=== PATIENT | male | born 1980 ===

== ENCOUNTER 2018-02-09 12:45 | Emergency (ER) | payer OTHER ==
--- NOTE | 2018-02-09 13:02 | ED PDOC ---
Arrival/HPI - General Time Seen by Provider: 02/09/18 12:59 Historian: Patient - History of Present Illness Narrative History of Present Illness (Text): 02/09/18 12:59 37yo male with no pmhx who present with complaint of left sided rib pain. states pain started this morning after vomiting. Notes that he drank alcohol last night and vomited multiple times this morning and then started having ribs pain s/p. States pain is worse with deep inspiration, causing him to have SOB. He did not take any medication for the pain. Denies cough, chest pain, dizziness , trauma, fever, chills, any other complaint. Past Medical History - Provider Review Nursing Documentation Reviewed: Yes Family/Social History - Physician Review Nursing Documentation Reviewed: Yes Family/Social History: Unknown Family HX Allergies/Home Meds Allergies/Adverse Reactions: Allergies No Known Allergies Allergy (Verified 02/09/18 13:05) Review of Systems - Physician Review All systems were reviewed & negative as marked: Yes - Review of Systems Constitutional: Normal Eyes: Normal ENT: Normal Respiratory: Normal Cardiovascular: Normal Gastrointestinal: Normal Genitourinary Male: Normal Musculoskeletal: Arthralgias (Rib pain) Skin: Normal Neurological: Normal Endocrine: Normal Hemo/Lymphatic: Normal Psychiatric: Normal Physical Exam Vital Signs Reviewed: Yes Vital Signs Temp Pulse Resp BP Pulse Ox 02/09/18 15:04 97.8 F 84 16 118/81 98 02/09/18 15:02 97.8 F 84 16 118/81 98 02/09/18 13:03 97.8 F 98 H 18 147/79 99 Temperature: Afebrile Blood Pressure: Normal Pulse: Regular Respiratory Rate: Normal Appearance: Positive for: Well-Appearing, Non-Toxic, Comfortable Pain Distress: None Mental Status: Positive for: Alert and Oriented X 3 - Systems Exam Head: Present: Atraumatic, Normocephalic Pupils: Present: PERRL Extroacular Muscles: Present: EOMI Conjunctiva: Present: Normal Mouth: Present: Moist Mucous Membranes Neck: Present: Normal Range of Motion Respiratory/Chest: Present: Clear to Auscultation, Good Air Exchange. No: Respiratory Distress, Accessory Muscle Use, Wheezes, Decreased Breath Sounds, Rales, Retracting, Rhonchi, Tender to Palpation Cardiovascular: Present: Regular Rate and Rhythm, Normal S1, S2. No: Murmurs Abdomen: No: Tenderness, Distention, Peritoneal Signs Back: Present: Normal Inspection Upper Extremity: Present: Normal Inspection. No: Cyanosis, Edema Lower Extremity: Present: Normal Inspection. No: Edema Neurological: Present: GCS=15, CN II-XII Intact, Speech Normal Skin: Present: Warm, Dry, Normal Color. No: Rashes Psychiatric: Present: Alert, Oriented x 3, Normal Insight, Normal Concentration Medical Decision Making ED Course and Treatment: 02/09/18 20:29 PT present with sharp left sided rib pain s/p vomiting. He was physically in ED Toradol and flexeril was given for pain control and on re evaluation she report resolution of his pain Rib/Chest xray IMPRESSION: Unremarkable radiographs of the chest and left ribs. No left rib fracture. EKG NSR @ 72bpm. All result was DW the pt and he was DC home with percocet, ibuprofen and flexeril. Referred to the clinic. Advised TRT ED for any new or worsening symptoms. - RAD Interpretation Radiology Orders: 02/09/18 13:06 RIBS LEFT & PA CHEST [RAD] Stat - Medication Orders Current Medication Orders: Discontinued Medications Diazepam (Valium) 5 mg PO ONCE ONE PRN Reason: Protocol Stop: 02/09/18 13:08 Last Admin: 02/09/18 13:11 Dose: 5 mg Ketorolac Tromethamine (Toradol) 60 mg IM STAT STA Stop: 02/09/18 13:08 Last Admin: 02/09/18 13:11 Dose: 60 mg MAR Pain Assessment Document 02/09/18 13:11 [facility] (Rec: 02/09/18 13:11 [facility] [id number]) Pain Reassessment Is this a pain reassessment? No Sleep Is patient sleeping during reassessment? No Presence of Pain Presence of Pain Yes Pain Scale Used Pain Scale Used Numeric Location Pain Location Body Site Chest Description Description Throbbing Intensity of Pain at present 10 IM Administration Charges Document 02/09/18 13:11 [facility] (Rec: 02/09/18 13:11 [facility] [id number]) Charges for Administration # of IM Administrations 1 Disposition/Present on Arrival - Present on Arrival Any Indicators Present on Arrival: No History of DVT/PE: No History of Uncontrolled Diabetes: No Urinary Catheter: No History of Decub. Ulcer: No History Surgical Site Infection Following: None - Disposition Have Diagnosis and Disposition been Completed?: Yes Diagnosis: Rib pain Disposition: HOME/ ROUTINE Disposition Time: 14:45 Patient Plan: Discharge Condition: STABLE Discharge Instructions (ExitCare): Chest Pain (ED) Additional Instructions: Follow up with your Doctor Return to ED for any new or worsening symptoms Prescriptions: Cyclobenzaprine [Cyclobenzaprine HCl] 10 mg PO TID #12 tab Naproxen [Naprosyn] 500 mg PO BID #20 tablet oxyCODONE/Acetaminophen [Percocet 5/325 mg Tab] 1 ea PO Q6 #6 tab Referrals: PCP,NO [Primary Care Provider] - Follow up with primary Forms: [employer] ([place])
[2018-02-09 13:14] VITALS: TEMP 97.8
--- NOTE | 2018-02-09 14:37 | RAD ---
Date of service: 02/09/2018 PROCEDURE: Radiographs of the Chest and Left Ribs. HISTORY: rib pain COMPARISON: None available. TECHNIQUE: Frontal radiograph of the chest and multiple oblique radiographs of the left ribs were obtained. FINDINGS: LEFT RIBS: No fracture or focal lesion visualized. LUNGS: Clear. PLEURA: No pneumothorax or pleural fluid. CARDIOVASCULAR: Normal sized heart. No pulmonary vascular congestion. OTHER FINDINGS: None. IMPRESSION: Unremarkable radiographs of the chest and left ribs. No left rib fracture.
[2018-02-09 15:03] VITALS: BP 118/81; PULSE 84; RESP 16; O2SAT 98
--- NOTE | 2018-02-10 07:44 | CARD ---
APPROVED REPORT Date of service: 02/09/2018 EKG Measurement Heart [id number] <Conclusion> Normal sinus rhythm with sinus arrhythmia NSSTW changes LVH by voltage
== END 2018-02-09 15:05 | disposition home or self-care (01) ==
LOC: ED 12:45
DX: R07.81 Pleurodynia (principal)
CPT/HCPCS: 71101; 93005; 96372; 99283; J1885